=== PATIENT | female | born 1985 | race Hispanic/Latino ===

== ENCOUNTER 2017-09-16 20:34 | Emergency (ER) | payer OTHER ==
[~2017-09-16] VITALS: Ht 165.1 cm; Wt 66.7 kg
[2017-09-16 22:27] VITALS: BP 120/86
== END 2017-09-16 22:00 | disposition home or self-care (01) ==
LOC: FSED 20:34
DX: M79.672 Pain in left foot (principal)
CPT/HCPCS: 99283